=== PATIENT | male | born 1990 | race Caucasian/White ===

== ENCOUNTER 2016-08-20 08:47 | Emergency (ER) | payer OTHER ==
[2016-08-20] MEDS: THIAMINE HCL 100 MG, MVI, ADULT NO.1 WITH VIT K 10 ML, FOLIC ACID 5 MG in 0.9 % SODIUM ... IV SCH ×4 (09:15)
[2016-08-20 09:50] LABS: BASOPHILS % 0.3 (0.0-1.5); EOSINOPHILS % 0.5 % (0.0-6.8); MEAN CORPUSCULAR HEMOGLOBIN 31.5 pg (28.0-34.0); MEAN CORPUSCULAR VOLUME 89.6 fl (80.0-100.0); MONOCYTES % 4.9 % (0.0-11.0); NEUTROPHILS # 5.3 # k/uL (1.4-7.7)
[2016-08-20 10:02] LABS: eGFR (African) > 60; eGFR (Non-African) > 60
[2016-08-20] MEDS: THIAMINE HCL 100 MG/ML 2ML VIAL ONE (10:11)
[2016-08-20] MEDS: FOLIC ACID 5 MG/1 ML ONE (10:12)
[2016-08-20] MEDS: MVI, ADULT NO.1 WITH VIT K 10 ML VIAL IV ONE (10:12)
[2016-08-20] MEDS: 0.9 % SODIUM CHLORIDE 1,000 ML IV ONE (10:12)
[2016-08-20] MEDS: 0.9 % SODIUM CHLORIDE 500 ML IV ONE (10:15)
[2016-08-20] MEDS ORDERED: LACTULOSE 10 GM/15 ML UDC PO ONE (11:28)
[2016-08-20] MEDS: MAGNESIUM HYDROXIDE 400 MG/5 ML 30ML UDC PO ONE (11:35)
[2016-08-20] MEDS: LACTULOSE 10 GM/15 ML UDC PO SCH (11:36)
--- NOTE | 2016-08-20 11:50 | ED Physician Documentation ---
General Adult - HISTORIAN Historian: patient - HPI Stated Complaint: "I need my system flushed" Chief Complaint: General Adult Additional Information: regular user of alcohol, feels toxic, stopped drinking 2 days ago Onset: days ago (2) Timing: still present Severity: moderate Modifying Factors: daily etoh use Context: as above Quality: moderate Location: generalized Further Comments: no Last known Well Date: 08/18/16 Last Known Well Time: 00:00 Last known Well Code/Unknown Code: Unknown - ROS CONST: no problems EYES/ENT: none CVS/RESP: none GI/: abdominal pain, other (no stool x 4 days) MS/SKIN/LYMPH: none NEURO/PSYCH: denies: headache, fainting, dizziness, tingling, numbness, difficulty walking, difficulty with speech, anxiety, depression - PAST HX Past History: other (anxiety, bipolar disorder, depression) Other History: none Surgeries/Procedures: none Immunizations: referred to PCP Allergies/Adverse Reactions: Allergies Allergy/AdvReac Type Severity Reaction Status Date / Time No Known Allergies Allergy Unverified 08/20/16 09:19 Home Medications: Ambulatory Orders Medication Instructions Recorded NK [NK] 08/20/16 - SOCIAL HX Smoking History: cigarettes Alcohol Use: heavy Drug Use: none - FAMILY HX Family History: No - VITAL SIGNS Vital Signs: Vital Signs Temp Pulse Resp BP Pulse Ox 83 16 143/81 95 08/20/16 08:52 08/20/16 08:52 08/20/16 08:52 08/20/16 08:52 - REVIEWED ASSESSMENTS Nursing Assessment Reviewed: Yes Vitals Reviewed: Yes Progress - Results/Orders Results/Orders: cbc, cmp, ua, etoh, cxr, kub ordered - Progress Progress: pt. given banana bag, 1 liter ns and brown cow (30 cc each lactulose, mom and prune juice) in er. Critical Care Note - Critical Care Note Total Time (mins): 0 ED Results Lab/Radiology - Lab Results Lab Results: Lab Results 08/20/16 08/20/16 09:45 09:45 WBC 6.70 K/ul K/ul (4.00-12.00) RBC 4.90 M/ul M/ul (3.90-5.20) Hgb 15.4 g/dL g/dL (12.0-18.0) Hct 43.9 % % (37.0-53.0) MCV 89.6 fl fl (80.0-100.0) MCH 31.5 pg pg (28.0-34.0) MCHC 35.2 g/dL g/dL (30.0-36.0) RDW 12.6 % % (11.3-14.3) Plt Count 183 K/mm3 K/mm3 (130-400) Neut % (Auto) 78.2 % % (39.0-79.0) Lymph % (Auto) 15.0 % L % (16.0-50.0) [place] % (Auto) 4.9 % % (0.0-11.0) Eos % (Auto) 0.5 % % (0.0-6.8) Baso % (Auto) 0.3 (0.0-1.5) Neut # 5.3 # k/uL # k/uL (1.4-7.7) Lymph # 1.0 # k/uL # k/uL (0.6-4.0) [place] # 0.3 # k/uL # k/uL (0.0-0.9) Eos # 0.0 # k/uL # k/uL (0.0-0.6) Baso # 0.0 # k/uL # k/uL (0.0-0.5) Reactive Lymphs % 1.0 % % (0.0-5.0) Reactive Lymphs # 0.1 # k/uL # k/uL (0.0-0.8) Sodium 138 mmol/L mmol/L (136-145) Potassium 4.0 mmol/L mmol/L (3.5-5.0) Chloride 103 mmol/L mmol/L (98-110) Carbon Dioxide 28 mmol/L mmol/L (20-32) BUN 10 mg/dL mg/dL (10-26) Creatinine 0.7 mg/dL mg/dL (0.4-1.5) Estimated Creat Clear 193 Est GFR ( Amer) > 60 (60 - ) Est GFR (Non-Af Amer) > 60 (60 - ) Glucose 97 mg/dL mg/dL (70-99) Calcium 9.8 mg/dL mg/dL (8.5-10.5) Total Bilirubin 2.4 mg/dL H mg/dL (0.2-1.2) AST 24 U/L U/L (0-41) ALT 17 U/L U/L (0-45) Alkaline Phosphatase 49 U/L U/L (46-116) Total Protein 7.8 g/dL g/dL (6.0-8.5) Albumin 4.7 g/dL g/dL (3.0-5.5) Ethyl Alcohol < 10.0 MG/DL MG/DL (<10.0) - Radiology Radiology Impressions: cxr clear, kub clear - Orders Orders: ED Orders Category Date Time Status Further Nursing Orders 1T Care 08/20/16 11:[address] IV Lock 1T Care 08/20/16 09:39 Completed ABDOMEN 1 VIEW [RAD] Stat Exams 08/20/16 Ordered CHEST 1 VIEW [RAD] Routine Exams 08/20/16 Ordered CBC/PLATELET/DIFF Routine Lab 08/20/16 09:45 Completed CMP Routine Lab 08/20/16 09:45 Completed ETHANOL MEDICAL USE ONLY Routine Lab 08/20/16 09:45 Completed URINALYSIS Routine Lab 08/20/16 Ordered Urine drug screen [DRUG SCREEN URINE MEDICAL ONLY] Lab 08/20/16 Ordered Routine 0.9 % Sodium Chloride [Normal Saline] 1,000 ml Med 08/20/16 09:05 Discontinued IV .STK-MED 0.9 % Sodium Chloride [Normal Saline] 500 ml Med 08/20/16 09:39 Discontinued IV NOW Folic Acid [Folvite] Med 08/20/16 09:05 Discontinued 5 mg .ROUTE .STK-MED ONE Lactulose [Enulose] Med 08/21/16 11:00 Ordered 20 gm PO 1100 Magnesium Hydroxide [Milk of Magnesia] Med 08/20/16 11:12 Once 2,400 mg PO NOW ONE Mvi, Adult No.1 with Vit K [M.v.i. Adult] Med 08/20/16 09:05 Discontinued 10 ml IV .STK-MED ONE Thiamine HCl Med 08/20/16 09:05 Discontinued 200 mg .ROUTE .STK-MED ONE Thiamine HCl 100 mg Med 08/20/16 10:02 Ordered Mvi, Adult No.1 with Vit K [M.v.i. Adult] 10 ml Folic Acid [Folvite] 5 mg 0.9 % Sodium Chloride [Normal Saline] 1,000 ml IV Q8 Thiamine HCl 100 mg Med 08/20/16 13:00 Discontinued Mvi, Adult No.1 with Vit K [M.v.i. Adult] 10 ml Folic Acid [Folvite] 5 mg 0.9 % Sodium Chloride [Normal Saline] 1,000 ml IV Q8 General Adult Physical Exam - PHYSICAL EXAM GENERAL APPEARANCE: moderate distress EENT: eye inspection normal, ENT inspection normal, pharynx normal, no signs of dehydration, MIRIAM, no nystagmus, TM's nml NECK: normal inspection, thyroid normal, supple RESPIRATORY: no resp distress, chest non-tender, breath sounds normal CVS: reg rate & rhythm, heart sounds normal, equal pulses, no murmur, no gallop , PMI nml, no JVD ABDOMEN: soft, normal bowel sounds, tenderness (generalized) BACK: normal inspection, no CVA tenderness SKIN: warm/dry, normal color EXTREMITIES: non-tender, normal range of motion, no evidence of injury, no edema NEURO: oriented X3, CN's nml as tested, motor nml, sensation nml, cognition normal, depressed mood/affect Discharge Clincal Impression: Alcohol abuse Referrals: Primary Doctor,No [Primary Care Provider] - 2 Days Home Medications: Ambulatory Orders NK [NK] 08/20/16 Comments: discharged with recommendation for AA Condition: Stable Disposition: 01 HOME, SELF-CARE Decision to Admit: NO Decision Time: 11:45
[2016-08-20 12:26] VITALS: BP 135/87
[2016-08-20] MEDS ORDERED: THIAMINE HCL 100 MG, MVI, ADULT NO.1 WITH VIT K 10 ML, FOLIC ACID 5 MG in 0.9 % SODIUM ... IV SCH ×4 (13:00)
--- NOTE | 2016-08-20 14:13 | Diagnostic Imaging Report ---
[facility] [address] [facility].[address] [address] Report Submission Date: Aug 20, 2016 10:28:44 AM CDT Patient Study Name: SHA NORIEGA Date: Aug 20, 2016 9:58:14 AM CDT Modality Type: CR Gender: M Description: ABDOMEN : 89 Institution: [facility] Physician JC VOGEL - MARIALUISA Abdomen -one view CLINICAL HISTORY: Constipation for 2-3 weeks. FINDINGS: Examination abdomen single AP view demonstrates gas and stool in the colon. There is no obstruction. Visualized visceral silhouettes are within normal limits. Bony structures are intact. There are no unusual intra-abdominal calcifications. IMPRESSION: Stool throughout the colon. Electronically signed on Aug 20, 2016 10:28:44 AM CDT by: Santiago DEMARCO
--- NOTE | 2016-08-20 14:14 | Diagnostic Imaging Report ---
[facility] [address] [facility].[address] [address] Report Submission Date: Aug 20, 2016 10:27:53 AM CDT Patient Study Name: SHA NORIEGA Date: Aug 20, 2016 9:52:49 AM CDT Modality Type: CR Gender: M Description: CHEST : 89 Institution: [facility] Physician JC VOGEL - MARIALUISA Chest -one view CLINICAL HISTORY: Congestion for 2-3 weeks. FINDINGS: Examination of the chest single PA view with no prior film for comparison demonstrates lungs to be clear. Cardiovascular and mediastinal silhouettes are within normal limits. Bony thorax is intact. IMPRESSION: Negative chest. Electronically signed on Aug 20, 2016 10:27:53 AM CDT by: Santiago DEMARCO
== END 2016-08-20 11:50 | disposition home or self-care (01) ==
LOC: ED 08:47
DX: F10.10 Alcohol abuse, uncomplicated (principal)
CPT/HCPCS: 71010; 74000; 80053; 80320; 85025; J3411; J3490; J7030; J7060; 96361; 96365; 96366; 99283; G0480; S1016

== ENCOUNTER 2016-10-09 21:05 | Emergency (ER) | payer OTHER ==
--- NOTE | 2016-10-09 21:28 | ED Physician Documentation ---
Chest Pain - HISTORIAN Historian: patient - HPI Chief Complaint: Chest Pain Onset: other (2 years ago) Timing: gone now Duration: waxing, waning Last known Well Date: 10/09/16 Last Known Well Time: 15:00 Last known Well Code/Unknown Code: Known Context: rest Quality: tightness Chest Pain Radiation: no radiation Chest Pain Signs/Symptoms: denies: nausea, vomiting, diaphoresis Worsened By: other (smoking) Relieved By: nothing Further Comments: yes (Patient states that he has been having some intermittent chest pain for two years. No precipitating factor, worse with smoking, nothing seems to helps. Last for several minutes or several hours. This evening had a sharper pain then before and decided to have it evaluatied.) - ROS CONST: none. denies: fever SKIN/ENDO: denies: rash NEURO/PSYCH: denies: headache - PAST HX DE risk factors: other (chronic pedal edema) GI disease: none Lung disease: none Surgeries/Procedures: other (AC should separation repair) Allergies/Adverse Reactions: Allergies Allergy/AdvReac Type Severity Reaction Status Date / Time No Known Allergies Allergy Verified 10/09/16 21:32 Home Medications: Ambulatory Orders Medication Instructions Recorded NK [NK] 08/20/16 - SOCIAL HX Smoking History: less than 1 pack/day (1/2 ppd) Alcohol Use: heavy (getting intoxicated 4 times a week) Drug Use: none - FAMILY HX Family HX: none - VITAL SIGNS Vital Signs: Vital Signs Temp Pulse Resp BP Pulse Ox 135/87 08/20/16 11:50 - REVIEWED ASSESSMENTS Nursing Assessment Reviewed: Yes Vitals Reviewed: Yes Progress - EKG/XRAY/CT EKG: NSR Comments: mild sinus bradycardia ED Results Lab/Radiology - Radiology Radiology Impressions: CXR: WNL Patient Study Name: SHA NORIEGA Date: Oct 09, 2016 9:34:29 PM CDT Modality Type: CR Gender: M Description: CHEST : 89 Institution: [facility] Physician: JENNIFER JUNE - MARIALUISA Chest, PA and lateral History: Chest pain Findings: No infiltrate, effusion or pneumothorax is present. Heart size, mediastinum and pulmonary vascularity are normal. Postoperative changes are noted in the left shoulder. Since 20 August 2016, no significant change has occurred. Impression: Normal Chest Pain Physical Exam - EXAM General Appearance: no acute distress, alert EENT: ENT inspection normal Neck: nml inspection, no carotid bruit Respiratory: no resp. distress, chest non-tender, nml breath sounds, manifests distinct pain on movement. No: resp.distress, wheezes, rales, rhonchi CVS: No: reg. rate & rhythm, no murmur, no gallop, no friction rub, pulses full , pulses equal Abdomen: soft, no organomegaly, normal bowel sounds, no abdominal bruit, no distension, non-tender Skin: warm/dry, normal color Extremities: non-tender, normal range of motion, no evidence of injury, edema Neuro: oriented X3, mood/affect nml, cognition normal Discharge Clincal Impression: Atypical chest pain Referrals: Primary Doctor,No [Primary Care Provider] - 2 Days Additional Instructions: Take some Aleve 2 tablets twice a day with food to see if it will help with your pain. To follow-up with your primary care provider to see if further studies are warranted at this time. Home Medications: Ambulatory Orders NK [NK] 08/20/16 Condition: Stable Disposition: 01 HOME, SELF-CARE Decision to Admit: NO Date of Decison to Admit: 10/09/16 Decision Time: 22:12
[2016-10-09 21:58] LABS: BASOPHILS % 0.9 (0.0-1.5); EOSINOPHILS % 2.5 % (0.0-6.8); MEAN CORPUSCULAR HEMOGLOBIN 30.7 pg (28.0-34.0); MEAN CORPUSCULAR VOLUME 89.7 fl (80.0-100.0); MONOCYTES % 9.6 % (0.0-11.0); NEUTROPHILS # 4.6 # k/uL (1.4-7.7)
--- NOTE | 2016-10-09 22:02 | Diagnostic Imaging Report ---
JENNIFER JUNE [facility] [address] [facility].[address] [address] Report Submission Date: Oct 09, 2016 9:56:54 PM CDT Patient Study Name: SHA NORIEGA Date: Oct 09, 2016 9:34:29 PM CDT Modality Type: CR Gender: M Description: CHEST : 89 Institution: [facility] Physician: JENNIFER JUNE Chest, PA and lateral History: Chest pain Findings: No infiltrate, effusion or pneumothorax is present. Heart size, mediastinum and pulmonary vascularity are normal. Postoperative changes are noted in the left shoulder. Since 20 August 2016, no significant change has occurred. Impression: Normal. Electronically signed on Oct 09, 2016 9:56:54 PM CDT by: Gabe DEMARCO
[2016-10-09 22:12] LABS: eGFR (African) > 60; eGFR (Non-African) > 60
[2016-10-09 22:36] VITALS: BP 141/74
== END 2016-10-09 22:25 | disposition home or self-care (01) ==
LOC: ED 21:05
DX: R07.89 Other chest pain (principal)
CPT/HCPCS: 71020; 80053; 82550; 84484; 85025; 85379; 99283; S1016